=== PATIENT | male | born 1955 ===

== ENCOUNTER 2017-01-13 16:14 | Emergency (ER) | payer OTHER ==
[2017-01-13 16:14] VITALS: BMI 37.0
[2017-01-13 16:30] VITALS: RESP 18
--- NOTE | 2017-01-13 17:39 | RAD ---
PROCEDURE: CHEST RADIOGRAPH, 1 VIEW HISTORY: Shortness of breath COMPARISON: None available. FINDINGS: LUNGS: The lungs are clear. PLEURA: No pneumothorax or pleural fluid seen. CARDIOVASCULAR: Normal. OSSEOUS STRUCTURES: No significant abnormalities. VISUALIZED UPPER ABDOMEN: Normal. OTHER FINDINGS: None. IMPRESSION: No active pulmonary disease.
[2017-01-13 17:45] LABS: BASO # 0.1 K/uL (0.0-0.2); BASO % 1.2 % (0.0-2.0); EOS # 0.4 K/uL (0.0-0.7); HEMATOCRIT 39.6 % (35.0-51.0); LYMPH # 1.8 K/uL (1.0-4.3); LYMPH % 27.7 % (20.0-40.0); MEAN CELL VOLUME 79.7 fL (80.0-94.0); MEAN CORPUSCULAR HEMOGLOBIN 26.9 pg (27.0-31.0); MEAN CORPUSCULAR HGB CONC 33.8 g/dL (33.0-37.0); MEAN PLATELET VOLUME 8.8 fL (7.2-11.7); MONO # 0.6 K/uL (0.0-0.8); MONO % 9.4 % (0.0-10.0); NRBC % 0.1 % (0.0-2.0); RED CELL DISTRIBUTION WIDTH 16.3 % (11.5-14.5); WHITE BLOOD COUNT 6.4 K/uL (4.8-10.8)
[2017-01-13 18:18] LABS: ALB/GLOB RATIO 1.1 (1.0-2.1); ALKALINE PHOSPHATASE 87 U/L (38-126); ALT/SGPT 29 U/L (21-72); AST/SGOT 18 U/L (17-59); BILIRUBIN,TOTAL 0.5 mg/dL (0.2-1.3); BLOOD UREA NITROGEN 21 mg/dL (9-20); CALCIUM 9.6 mg/dl (8.6-10.4); CARBON DIOXIDE 28 mmol/L (22-30); CHLORIDE 102 mmol/L (98-107); GFR AFRICAN-AMERICAN 57; GLUCOSE,RANDOM 129 mg/dL (75-110); POTASSIUM 3.6 mmol/L (3.6-5.2); SODIUM 142 mmol/L (132-148); TOTAL PROTEIN 7.6 g/dL (6.3-8.3)
--- NOTE | 2017-01-13 18:53 | C.PDOC ---
History Of Present Illness 61 year old male presents to the ED with complaints of headache and "uncontrolled HTN." Patient notes he has not been taken either of his medications because they ran out six days ago. He also notes he has been using 3 tubes of 30g steroid creams in three months that he rubs all over his body that originally for a "jock itch." Patient denies fever, chills, nausea, vomiting, chest pain, or shortness of breath. Time Seen by Provider: 01/13/17 16:48 Chief Complaint (Nursing): High Blood Pressure History Per: Patient History/Exam Limitations: no limitations Onset/Duration Of Symptoms: Hrs Current Symptoms Are (Timing): Still Present Associated Symptoms: Headache Recent travel outside of the [place]: No Past Medical History Reviewed: Historical Data, Nursing Documentation, Vital Signs Vital Signs: Last Vital Signs Temp 98.7 F 01/13/17 19:29 Pulse 88 01/13/17 19:15 Resp 18 01/13/17 19:15 BP 171/105 H 01/13/17 19:15 Pulse Ox 98 01/13/17 19:15 - Medical History PMH: Gastrointestinal Ulcer, HTN, Hypercholesterolemia Family History: States: Unknown Family Hx - Social History Hx Alcohol Use: No Hx Substance Use: No - Immunization History Hx Tetanus Toxoid Vaccination: No Hx Influenza Vaccination: No Hx Pneumococcal Vaccination: No Review Of Systems Constitutional: Positive for: Other (uncontrolled HTN ). Negative for: Fever, Chills Cardiovascular: Negative for: Chest Pain, Palpitations Respiratory: Negative for: Cough, Shortness of Breath Gastrointestinal: Negative for: Nausea, Vomiting, Abdominal Pain, Diarrhea Neurological: Positive for: Headache Physical Exam - Physical Exam Appears: Non-toxic, No Acute Distress Skin: Warm, Dry Head: Atraumatic, Other (Epps Face ) Eye(s): bilateral: Normal Inspection, PERRL, EOMI Oral Mucosa: Moist Neck: Other ([place]ump ) Chest: Other (Subclavicular fat pads ) Cardiovascular: Rhythm Regular Respiratory: Normal Breath Sounds, No Rales, No Rhonchi, No Wheezing Gastrointestinal/Abdominal: Soft, No Tenderness, No Distention, No Guarding, No Rebound, Other (Central obesity, no abdominal striae) Extremity: Normal ROM, No Tenderness, No Pedal Edema, No Calf Tenderness, Capillary Refill (good capillary refill, less than two seconds ), No Deformity, No Swelling Neurological/Psych: Oriented x3, Normal Speech, Normal Cognition, Normal Motor, Normal Sensation ED Course And Treatment - Laboratory Results Result Diagrams: 01/13/17 17:41 01/13/17 17:41 Lab Interpretation: Normal (trop neg.) O2 Sat by Pulse Oximetry: 97 (room air ) - Radiology CXR: Interpreted by Tn CXR Interpretation: Yes: No Acute Disease Progress Note: amlodipine 10 PO, Lisinopril 40 PO Reevaluation Time: 19:05 Reassessment Condition: Improved Medical Decision Making Medical Decision Making: HTN: POORLY controlled OFF Lisinopril 40 PO and Amlodipine 10 daily x 6 days. Restarted and educated to NOT run out of BP meds [place] Syndrome Probably iatrogenic- pt has consumed 3 large tubes of topical steroid creams over the past 3 months, rubbing over much of his body. Educated to use no more topical steroid creams. FUNGAL creams for tinea cruris without steroids prescribed. Disposition Doctor Will See Patient In The: Office Counseled Patient/Family Regarding: Studies Performed, Diagnosis - Disposition Referrals: [facility] [Outside] [facility] [Outside] [facility]] Disposition: HOME/ ROUTINE Disposition Time: 19:09 Condition: GOOD Additional Instructions: Hipertension: natividad Lisinopril 40 mg diario (en la manana) natividad Amlodipina 10 mg diario (en la manana) Si estan acabando los medicamentos, presenta en la Clinica o' la [facility] para rellenar payton recetas NUNCA debes acabar payton medicamentos! Sigue en la Clinica en 2 semanas para re-evaluar lam pression tanner Latha Syndrome: Provocado por inguentos de steroides Ya NUNCA usa inguentos que contienen esteroides Picason Inguinal: Applica el inguento de Clotrimazole en el area inguinal 2 veces al samreen por 5 albright. NO usas inguentos con esteroides! Prescriptions: amLODIPine [Norvasc] 10 mg PO DAILY #30 tab Clotrimazole 1% Cream [Lotrimin 1%] 30 applic TOP BID #1 tube Enalapril Maleate [Vasotec] 40 mg PO DAILY #30 tab Instructions: Latha Syndrome (ED), Hypertension (ED), Skin Yeast Infection ( ED) Forms: [facility] (Thai) Print Language: YORUBA - Clinical Impression Clinical Impression: Tinea cruris, HTN (hypertension) - Scribe Statement The provider has reviewed the documentation as recorded by the Scribe Suly Wallace All medical record entries made by the Jenniferibmariella were at my direction and personally dictated by me. I have reviewed the chart and agree that the record accurately reflects my personal performance of the history, physical exam, medical decision making, and the department course for this patient. I have also personally directed, reviewed, and agree with the discharge instructions and disposition.
[2017-01-13 19:23] VITALS: BP 171/105; PULSE 88
[2017-01-13 19:30] VITALS: TEMP 98.7
[2017-01-13 21:45] VITALS: O2SAT 97
--- NOTE | 2017-01-15 18:12 | CARD ---
APPROVED REPORT EKG Measurement Heart [id number] OR [id number] [id number] <Conclusion> Normal sinus rhythm Incomplete right bundle branch block Left anterior fascicular block Prolonged QT Abnormal ECG
== END 2017-01-13 19:43 | disposition home or self-care (01) ==
LOC: C.ER 16:14
DX: I10 Essential (primary) hypertension (principal); B35.6 Tinea cruris; E78.00 Pure hypercholesterolemia, unspecified

== ENCOUNTER 2018-02-12 10:29 | Observation (INO) | payer MEDICAID, OTHER ==
[2018-02-12 10:29] VITALS: BMI 36.1
[2018-02-12] MEDS ORDERED: Enalaprilat 2.5 MG/2 ML IV STA (12:43)
--- NOTE | 2018-02-12 12:51 | C.PDOC ---
History Of Present Illness 62 year old male is sent from the clinic for evaluation of headache and elevated blood pressure. Patient states he usually takes Lisinopril 40mg but was unable to because he was in the [place] and ran out of medication. Patient has not taken medication in the last two weeks. Patient was evaluated in the clinic by Dr. Dowd, who sent prescriptions to the pharmacy but referred patient to the ED for stabilization of his blood pressure. Patient denies fever, chills, vision change, nausea, vomiting, or weakness. Time Seen by Provider: 02/12/18 11:03 Chief Complaint (Nursing): High Blood Pressure History Per: Patient History/Exam Limitations: no limitations Onset/Duration Of Symptoms: Days Current Symptoms Are (Timing): Still Present Associated Symptoms: Headache. denies: Dizziness, Blurred Vision, Focal Weakness Exacerbating Factor(s): Pos: Recently Missed Doses Of Medication Additional History Per: Patient Past Medical History Reviewed: Historical Data, Nursing Documentation, Vital Signs Vital Signs: Last Vital Signs Temp 97.8 F 02/12/18 10:33 Pulse 60 02/12/18 11:16 Resp 17 02/12/18 10:58 BP 193/105 H 02/12/18 11:16 Pulse Ox 98 02/12/18 10:58 - Medical History PMH: Gastrointestinal Ulcer, HTN, Hypercholesterolemia Surgical History: No Surg Hx Family History: States: Unknown Family Hx - Social History Hx Alcohol Use: No Hx Substance Use: No - Immunization History Hx Tetanus Toxoid Vaccination: No Hx Influenza Vaccination: No Hx Pneumococcal Vaccination: No Review Of Systems Constitutional: Negative for: Fever, Chills Eyes: Negative for: Vision Change Cardiovascular: Positive for: Other (elevated blood pressure ) Gastrointestinal: Negative for: Nausea, Vomiting Neurological: Positive for: Headache. Negative for: Weakness, Dizziness Physical Exam - Physical Exam Appears: Non-toxic, No Acute Distress Skin: Normal Color, Warm, Dry Head: Atraumatic, Normacephalic Eye(s): bilateral: Normal Inspection Oral Mucosa: Moist Neck: Supple Chest: Symmetrical, No Deformity, No Tenderness Cardiovascular: Rhythm Regular, No Murmur Respiratory: Normal Breath Sounds, No Rales, No Rhonchi, No Wheezing Extremity: Normal ROM, Capillary Refill (less than 2 seconds ) Neurological/Psych: Oriented x3, Normal Speech, Normal Cognition ED Course And Treatment - Laboratory Results Result Diagrams: 02/12/18 12:59 02/12/18 12:59 O2 Sat by Pulse Oximetry: 98 (on RA) Pulse Ox Interpretation: Normal - Other Rad CXR X-Ray: Interpreted by Me, Viewed By Me, Read By Radiologist Interpretation: Date of service: 02/12/2018. PROCEDURE: CHEST RADIOGRAPH, 1 VIEW. HISTORY: SOB. COMPARISON: Frontal chest radiograph 01/13/2017. FINDINGS: LUNGS: No interval pulmonary disease appreciated bilaterally. PLEURA: No pneumothorax or pleural fluid seen. CARDIOVASCULAR: Cardiomegaly reiterated. Taking technical differences into account, there is no significant evidence to suggest pulmonary vascular congestion. OSSEOUS STRUCTURES: No significant abnormalities. VISUALIZED UPPER ABDOMEN: Normal. OTHER FINDINGS: None. IMPRESSION: Cardiomegaly reiterated. No definite pulmonary vascular congestion, pleural effusion or pneumothorax evident. No alveolitis bilat erally. - CT Scan/US CT Head Other Rad Studies (CT/US): Interpreted By Me, Read By Radiologist, Radiology Report Reviewed CT/US Interpretation: Date of service: 02/12/2018. PROCEDURE: CT HEAD WITHOUT CONTRAST. HISTORY: MARSHALL and elevated BP. COMPARISON: None available. TECHNIQUE: Axial computed tomography images were obtained through the head/brain without intravenous contrast. Radiation dose: Total exam DLP = 1078.05 mGy-cm. This CT exam was performed using one or more of the following dose reduction techniques: Automated exposure control, adjustment of the mA and/or kV according to patient size, and/or use of iterative reconstruction technique. FINDINGS: HEMORRHAGE: No intracranial hemorrhage. BRAIN: There are mild chronic microangiopathic changes. There is no mass, mass effect or abnormal extra-axial fluid collection. There is no territorial infarction. The midline sagittal structures are normal. There is a 10 x 9 mm well-circumscribed round hyperdense lesion in the left suprasellar cistern. VENTRICLES: The ventricles are normal in size, shape and configuration. CALVARIUM: The skull base and calvarium are normal. PARANASAL SINUSES: There is mild mucosal thickening in the ethmoid air cells and small retention cyst/polyp in the left sphenoid chamber. MASTOID AIR CELLS: Predominantly clear. OTHER FINDINGS: None. IMPRESSION: No acute intracranial abnormality. 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 Correlation with CT Angiography of the head is recommended for definitive evaluation. Progress Note: Bloodwork, urinalysis, CT Head, EKG, CXR ordered and reviewed. Vasotec IV given. 16:51 Dr. Gary, neurosurgery on-call, paged for consult. 17:04. Received call back from Dr. Gary, who advised that findings are. incidental, there is no emergent action required, and patient can follow up. in the office. 17:10 Spoke with Hospitalist who accepted patient to Tele for observation. 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 - Scribe Statement The provider has reviewed the documentation as recorded by the Scribe (Irina Kwok) All medical record entries made by the Scribe were at my direction and personally dictated by me. I have reviewed the chart and agree that the record accurately reflects my personal performance of the history, physical exam, medical decision making, and the department course for this patient. I have also personally directed, reviewed, and agree with the discharge instructions and disposition. Decision To Admit - Pt Status Changed To: Hospital Disposition Of: Observation - . Bed Request Type: Telemetry Admitting Physician: Renaldo Sifuentes Patient Diagnosis: Hypertensive urgency, Brain aneurysm, Headache
[2018-02-12] MEDS ORDERED: Enalaprilat 2.5 MG/2 ML ONE (13:02)
[2018-02-12 13:09] LABS: BASO # 0.1 K/uL (0.0-0.2); BASO % 1.1 % (0.0-2.0); EOS # 0.3 K/uL (0.0-0.7); EOS % 6.3 % (0.0-4.0); HEMOGLOBIN 13.4 g/dL (12.0-18.0); LYMPH # 1.6 K/uL (1.0-4.3); LYMPH % 32.5 % (20.0-40.0); MEAN CELL VOLUME 81.6 fL (80.0-94.0); MEAN CORPUSCULAR HEMOGLOBIN 27.2 pg (27.0-31.0); MEAN CORPUSCULAR HGB CONC 33.3 g/dL (33.0-37.0); MEAN PLATELET VOLUME 8.9 fL (7.2-11.7); MONO # 0.5 K/uL (0.0-0.8); MONO % 9.4 % (0.0-10.0); NEUT # 2.5 K/uL (1.8-7.0); NEUT % 50.7 % (50.0-75.0); NRBC % 0.1 % (0.0-2.0); RBC 4.93 Mil/uL (4.40-5.90); RED CELL DISTRIBUTION WIDTH 16.9 % (11.5-14.5); WHITE BLOOD COUNT 4.9 K/uL (4.8-10.8)
[2018-02-12 13:14] LABS: URINE BACTERIA RARE (<OCC); URINE BILIRUBIN NEGATIVE (NEGATIVE); URINE BLOOD NEGATIVE (NEGATIVE); URINE CLARITY Clear (Clear); URINE COLOR Straw (YELLOW); URINE GLUCOSE (UA) NORMAL (Normal); URINE LEUKOCYTE ESTERASE NEG Leu/uL (Negative); URINE PROTEIN 2+ mg/dL (NEGATIVE); URINE UROBILINOGEN NORMAL mg/dL (0.2-1.0)
--- NOTE | 2018-02-12 13:17 | RAD ---
Date of service: 02/12/2018 PROCEDURE: CHEST RADIOGRAPH, 1 VIEW HISTORY: SOB COMPARISON: Frontal chest radiograph 01/13/2017. FINDINGS: LUNGS: No interval pulmonary disease appreciated bilaterally. PLEURA: No pneumothorax or pleural fluid seen. CARDIOVASCULAR: Cardiomegaly reiterated. Taking technical differences into account, there is no significant evidence to suggest pulmonary vascular congestion. OSSEOUS STRUCTURES: No significant abnormalities. VISUALIZED UPPER ABDOMEN: Normal. OTHER FINDINGS: None. IMPRESSION: Cardiomegaly reiterated. No definite pulmonary vascular congestion, pleural effusion or pneumothorax evident. No alveolitis bilaterally.
[2018-02-12 13:23] LABS: ALB/GLOB RATIO 1.1 (1.0-2.1); ALBUMIN 4.3 g/dL (3.5-5.0); ALT/SGPT 27 U/L (21-72); AST/SGOT 21 U/L (17-59); BLOOD UREA NITROGEN 20 mg/dL (9-20); CALCIUM 9.4 mg/dl (8.6-10.4); GFR NON-AFRICAN AMERICAN 51
--- NOTE | 2018-02-12 13:28 | CT ---
Date of service: 02/12/2018 PROCEDURE: CT HEAD WITHOUT CONTRAST. HISTORY: MARSHALL and elevated BP COMPARISON: None available. TECHNIQUE: Axial computed tomography images were obtained through the head/brain without intravenous contrast. Radiation dose: Total exam DLP = 1078.05 mGy-cm. This CT exam was performed using one or more of the following dose reduction techniques: Automated exposure control, adjustment of the mA and/or kV according to patient size, and/or use of iterative reconstruction technique. FINDINGS: HEMORRHAGE: No intracranial hemorrhage. BRAIN: There are mild chronic microangiopathic changes. There is no mass, mass effect or abnormal extra-axial fluid collection. There is no territorial infarction. The midline sagittal structures are normal. There is a 10 x 9 mm well-circumscribed round hyperdense lesion in the left suprasellar cistern. VENTRICLES: The ventricles are normal in size, shape and configuration. CALVARIUM: The skull base and calvarium are normal. PARANASAL SINUSES: There is mild mucosal thickening in the ethmoid air cells and small retention cyst/polyp in the left sphenoid chamber. MASTOID AIR CELLS: Predominantly clear. OTHER FINDINGS: None. IMPRESSION: No acute intracranial abnormality. 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 Correlation with CT Angiography of the head is recommended for definitive evaluation.
[2018-02-12] MEDS ORDERED: Iodixanol 320 MG/ML 100 ML BOTTLE IV ONE (15:03)
[2018-02-12 15:47] LABS: INR 1.1; PROTHROMBIN TIME 11.5 SECONDS (9.7-12.2)
--- NOTE | 2018-02-12 16:23 | CT ---
PROCEDURE: CTA HEAD AND NECK WITH CONTRAST HISTORY: r/o aneurysm COMPARISON: None available. TECHNIQUE: Initial noncontrast head CT was performed. Subsequently, CT angiogram of the head and neck were performed after the intravenous administration of 80 mL of Omnipaque 350. Contiguous 1.5mm thick images were obtained in the axial plane of the neck. 2-D coronal and sagittal MPR images were obtained. Imaging postprocessing was performed with 3-D images also obtained. A delayed contrast head CT was also obtained. This CT exam was performed using one or more of the following dose reduction techniques: Automated exposure control, adjustment of the mA and/or kV according to patient size, and/or use of iterative reconstruction technique. Contrast dose: 100 mL Visipaque 320 Radiation dose: Total exam DLP = 698.81 mGy-cm. FINDINGS: HEAD: Right: The intracranial internal carotid artery, and anterior and middle cerebral arteries are widely patent. The A1 segment is hypoplastic, an anatomic variant. Left: The intracranial internal carotid artery, and anterior and middle cerebral arteries are widely patent. There is a 0.8 x 1.1 cm fusiform aneurysm in the proximal supraclinoid ICA. Posterior circulation: The visualized intracranial vertebral arteries, basilar artery and posterior cerebral arteries are widely patent. There is no endoluminal filling defect to suggest thrombus. There is no intracranial saccular aneurysm. NECK: There is a three vessel aortic arch. There is no stenosis at the origins of the great vessels at the level of the aortic arch. Right Carotid: On the right, the common carotid, internal carotid and external carotid arteries are widely patent. There is no hemodynamically significant stenosis in the internal carotid artery by NASCET criteria. Left Carotid: On the left, the common carotid, internal carotid and external carotid arteries are widely patent.There is no hemodynamically significant stenosis in the internal carotid arteries. There is no hemodynamically significant stenosis in the internal carotid artery by NASCET criteria. The vertebral arteries are widely patent. The right vertebral artery is hypoplastic, an anatomic variant. The visualized soft tissues of the neck are normal. The visualized brain and cervical spine are within normal limits. The lung apices are clear. IMPRESSION: 1. 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 2. No evidence of endoluminal thrombus,occlusion or definite significant stenosis in the intracranial arteries. 3. No evidence of hemodynamically significant stenosis in the internal carotid arteries. 4. Patent bilateral vertebral arteries.
--- NOTE | 2018-02-12 18:49 | CP.PCM.HP ---
History of Present Illness - History of Present Illness History of Present Illness: Medicine History and Physical for Hospitalist Service Dhruv Woo DO PGY-1, [employer] 62M PMhx HTN presents to ED sent in from clinic for elevated bps and headache x 4 days. Pt reports not taking his home medication for 2 weeks due to being in the [place] and running out of the medication at home, [place] the [place]. Noted the headache got especially worse today, took 2 Tylenol without relief. 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 Denies fever, chills, chest pain, sob, n/v/d/c, abd pain, urinary complaints, or other symptoms. PMhx: HTN, HLD; per chart review also has hx of DM2, gastritis, H. pylori infection, Gout PSurgHx: notes hx of L arm surgery near elbow s/p trauma years ago Allergies: NKDA Home meds: states he is only on Lisinopril 40 mg daily, but ran out of medication 2 wks ago Fam hx: denies Soc Hx: denies smoking, alcohol, or illicit drug use PMD: [facility] (Dr. Dowd) Present on Admission - Present on Admission Any Indicators Present on Admission: No Past Patient History - Infectious Disease Hx of Infectious Diseases: None - Past Social History Smoking Status: Unknown If Ever Smoked - CARDIAC Hx Hypercholesterolemia: Yes Hx Hypertension: Yes - GASTROINTESTINAL Hx Ulcer: Yes - PSYCHIATRIC Hx Substance Use: No - SURGICAL HISTORY Hx Surgeries: Yes Other/Comment: Endoscopy for stomach. - ANESTHESIA Hx Anesthesia: Yes Hx Anesthesia Reactions: No Meds Allergies/Adverse Reactions: Allergies Allergy/AdvReac Type Severity Reaction Status Date / Time No Known Allergies Allergy Verified 02/12/18 10:39 Physical Exam - Constitutional Appears: Non-toxic, No Acute Distress - Head Exam Head Exam: ATRAUMATIC, NORMOCEPHALIC - Eye Exam Eye Exam: EOMI, Normal appearance, PERRL - ENT Exam ENT Exam: Mucous Membranes Moist, Normal Oropharynx - Respiratory Exam Respiratory Exam: Clear to Auscultation Bilateral, NORMAL BREATHING PATTERN - Cardiovascular Exam Cardiovascular Exam: REGULAR RHYTHM, +S1, +S2. absent: Gallop, Rubs, Systolic Murmur - GI/Abdominal Exam GI & Abdominal Exam: Normal Bowel Sounds, Soft. absent: Distended, Firm, Guarding, Rebound, Rigid, Tenderness - Extremities Exam Extremities exam: Positive for: full ROM, normal capillary refill, normal inspection, pedal pulses present - Neurological Exam Neurological exam: Alert, CN II-XII Intact, Oriented x3, Reflexes Normal - Psychiatric Exam Psychiatric exam: Normal Affect, Normal Mood - Skin Skin Exam: Dry, Intact, Normal Color, Warm Results - Vital Signs Recent Vital Signs: Last Vital Signs Temp 97.5 F L 02/12/18 16:10 Pulse 78 02/12/18 18:09 Resp 19 02/12/18 18:09 BP 137/88 02/12/18 18:09 Pulse Ox 95 02/12/18 18:09 - Labs Result Diagrams: 02/12/18 12:59 02/12/18 12:59 Labs: Laboratory Results - last 24 hr 02/12/18 02/12/18 02/12/18 12:59 12:59 13:06 WBC 4.9 RBC 4.93 Hgb 13.4 Hct 40.2 MCV 81.6 MCH 27.2 MCHC 33.3 RDW 16.9 H Plt Count 240 MPV 8.9 Neut % (Auto) 50.7 Lymph % (Auto) 32.5 [place] % (Auto) 9.4 Eos % (Auto) 6.3 H Baso % (Auto) 1.1 Neut # (Auto) 2.5 Lymph # (Auto) 1.6 [place] # (Auto) 0.5 Eos # (Auto) 0.3 Baso # (Auto) 0.1 PT INR APTT Sodium 145 Potassium 4.1 Chloride 104 Carbon Dioxide 29 Anion Gap 16 BUN 20 Creatinine 1.4 Est GFR ( Amer) > 60 Est GFR (Non-Af Amer) 51 Random Glucose 98 Calcium 9.4 Total Bilirubin 0.7 AST 21 ALT 27 Alkaline Phosphatase 101 Total Creatine Kinase 70 CK-MB (Mass) 0.70 Total Protein 8.2 Albumin 4.3 Globulin 3.9 Albumin/Globulin Ratio 1.1 Urine Color Straw Urine Clarity Clear Urine pH 7.0 Ur Specific [place] 1.011 Urine Protein 2+ H Urine Glucose (UA) Normal Urine Ketones Negative Urine Blood Negative Urine Nitrate Negative Urine Bilirubin Negative Urine Urobilinogen Normal Ur Leukocyte Esterase Neg Urine WBC (Auto) 1 Urine RBC (Auto) 1 Urine Bacteria Rare 02/12/18 15:28 WBC RBC Hgb Hct MCV MCH MCHC RDW Plt Count MPV Neut % (Auto) Lymph % (Auto) [place] % (Auto) Eos % (Auto) Baso % (Auto) Neut # (Auto) Lymph # (Auto) [place] # (Auto) Eos # (Auto) Baso # (Auto) PT 11.5 INR 1.1 APTT 38 H Sodium Potassium Chloride Carbon Dioxide Anion Gap BUN Creatinine Est GFR ( Amer) Est GFR (Non-Af Amer) Random Glucose Calcium Total Bilirubin AST ALT Alkaline Phosphatase Total Creatine Kinase CK-MB (Mass) Total Protein Albumin Globulin Albumin/Globulin Ratio Urine Color Urine Clarity Urine pH Ur Specific [place] Urine Protein Urine Glucose (UA) Urine Ketones Urine Blood Urine Nitrate Urine Bilirubin Urine Urobilinogen Ur Leukocyte Esterase Urine WBC (Auto) Urine RBC (Auto) Urine Bacteria Assessment & Plan - Assessment and Plan (Free Text) Assessment: 62M PMhx HTN presents to ED sent in from clinic for elevated bps and headache x 4 days. Pt admitted for hypertensive urgency. Plan: HTN Urgency Admit to tele floor Start Lisinopril 40 mg daily Start Norvasc 2.5 mg daily Hydralazine 25 mg PO q6h prn, 10 mg IVP q6h prn elevated bps Goal to keep systolic bp above 170, diastolic bp > 90 Ultram 50 mg q6h prn for headache HHD Will f/u am labs Continue to monitor bps, monitor clinical and mental status CXR: cardiomegaly, no pulm venous congestion, pleural effusion or pneumothorax, no alveolitis b/l EKG: HR 59, incomplete RBBB, unchanged RBBB from prior study in [address]: 10x9 mm round lesion in L suprasellar cistern may represent ICA terminus aneurysm. Correlate w/ CT angio. Head/Neck CTA: 0.8 x1.1 cm fusiform aneurysm in L proximal supraclinoid ICA, no evidence of endoluminal thrombus or definitive significant stenosis in intracranial arteries b/l, no stenosis in b/l carotid arteries, patent b/l vertebral arteries GI ppx: not indicated at this time DVT ppx: SCDs Pt seen, examined with, and plan d/w Dr. Sifuentes, attending. Dhruv Woo DO PGY-1, [employer] Pager #[phone]
[2018-02-12 20:56] VITALS: RESP 20
[2018-02-13 07:11] LABS: BASO # 0.1 K/uL (0.0-0.2); BASO % 1.1 % (0.0-2.0); EOS # 0.1 K/uL (0.0-0.7); EOS % 1.4 % (0.0-4.0); HEMOGLOBIN 12.9 g/dL (12.0-18.0); LYMPH # 1.4 K/uL (1.0-4.3); LYMPH % 22.3 % (20.0-40.0); MEAN CELL VOLUME 80.4 fL (80.0-94.0); MEAN CORPUSCULAR HEMOGLOBIN 26.5 pg (27.0-31.0); MEAN PLATELET VOLUME 9.2 fL (7.2-11.7); MONO # 0.4 K/uL (0.0-0.8); MONO % 6.3 % (0.0-10.0); NEUT # 4.3 K/uL (1.8-7.0); NEUT % 68.9 % (50.0-75.0); NRBC % 0.1 % (0.0-2.0); RBC 4.88 Mil/uL (4.40-5.90); RED CELL DISTRIBUTION WIDTH 16.9 % (11.5-14.5); WHITE BLOOD COUNT 6.3 K/uL (4.8-10.8)
[2018-02-13 08:08] LABS: ALB/GLOB RATIO 1.1 (1.0-2.1); ALBUMIN 3.9 g/dL (3.5-5.0); CALCIUM 9.3 mg/dl (8.6-10.4)
[2018-02-13] MEDS ORDERED: Labetalol 25mg/5ml Syringe IVP PRN (19:00)
--- NOTE | 2018-02-13 19:09 | CP.PCM.PN ---
Subjective - Date & Time of Evaluation Date of Evaluation: 02/13/18 Time of Evaluation: 11:09 - Subjective Subjective: PGY2 Medicine Note for Dr. Aranda Patient seen and examined this morning at bedside this morning. Patient was admitted yesterday for HTN urgency. His BP has been elevated throughout the day/night. He is still complaining of a headache. He denies any vision changes, nausea or vomiting. Patient is tolerating his diet. Denies any other complaints at this time. Objective - Vital Signs/Intake and Output Vital Signs (last 24 hours): Temp Pulse Resp BP Pulse Ox 98.1 F 75 20 185/108 H 97 02/13/18 16:28 02/13/18 16:28 02/13/18 16:28 02/13/18 17:45 02/13/18 16:28 - Medications Medications: Current Medications Amlodipine Besylate (Norvasc) 5 mg PO DAILY [facility] Heparin Sodium (Porcine) (Heparin) 5,000 units SC Q12 [facility] Last Admin: 02/13/18 10:42 Dose: 5,000 units Hydralazine HCl (Apresoline) 25 mg PO QID PRN PRN Reason: Diastolic blood pressure Last Admin: 02/13/18 14:51 Dose: 25 mg Labetalol HCl (Trandate) 10 mg IVP Q6H PRN PRN Reason: SBP>170 or DBP>100 Lisinopril (Zestril) 40 mg PO DAILY [facility] Last Admin: 02/13/18 10:00 Dose: Not Given Lisinopril (Zestril) 40 mg PO ONCE ONE Stop: 02/13/18 19:23 Last Admin: 02/13/18 18:26 Dose: 40 mg Tramadol HCl (Ultram) 50 mg PO Q6H PRN PRN Reason: Headache Last Admin: 02/13/18 14:27 Dose: 50 mg - Labs Labs: 02/13/18 07:03 02/13/18 07:03 PT 11.5 SECONDS (9.7-12.2) 02/12/18 15:28 INR 1.1 02/12/18 15:28 APTT 38 SECONDS (21-34) H 02/12/18 15:28 - Constitutional Appears: Non-toxic, No Acute Distress - Head Exam Head Exam: ATRAUMATIC, NORMOCEPHALIC - Eye Exam Eye Exam: EOMI, Normal appearance Pupil Exam: NORMAL ACCOMODATION, PERRL - ENT Exam ENT Exam: Mucous Membranes Moist - Neck Exam Neck Exam: absent: Lymphadenopathy - Respiratory Exam Respiratory Exam: Clear to Ausculation Bilateral, NORMAL BREATHING PATTERN. absent: Accessory Muscle Use, Rales, Rhonchi, Wheezes, Respiratory Distress - Cardiovascular Exam Cardiovascular Exam: REGULAR RHYTHM, +S1 - GI/Abdominal Exam GI & Abdominal Exam: Soft, Normal Bowel Sounds. absent: Distended, Firm, Guardi ng, Rigid - Extremities Exam Extremities Exam: absent: Calf Tenderness, Pedal Edema - Neurological Exam Neurological Exam: Alert, Awake, CN II-XII Intact, Oriented x3 - Psychiatric Exam Psychiatric exam: Normal Affect, Normal Mood - Skin Skin Exam: Dry, Warm Assessment and Plan - Assessment and Plan (Free Text) Plan: HTN Urgency BP still uncontrolled EKG (02/12): HR 59, incomplete RBBB, unchanged RBBB from prior study in 2017 Goal to keep systolic bp above 170, diastolic bp > 90 Lisinopril 40 mg PO daily Norvasc 2.5 mg PO daily --> increased to 5mg PO daily Hydralazine 25 mg PO q6h prn Labetalol 10mg IVP q6h prn for SBP>170 or DBP>100 * hold for HR<70bpm Ultram 50 mg q6h prn for headache Continue to monitor bps, monitor clinical and mental status CXR: cardiomegaly, no pulm venous congestion, pleural effusion or pneumothorax, no alveolitis 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 Correlate w/ CT angio. Head/Neck CTA: * 0.8 x1.1 cm fusiform aneurysm in L proximal supraclinoid ICA, no evidence of endoluminal thrombus or definitive significant stenosis in intracranial arteries b/l, no stenosis in b/l carotid arteries, patent b/l vertebral arteries Prophylactic Care GI ppx: not indicated at this time DVT ppx: SCDs Case discussed with Dr. Manoj Chan Federico PGY2
[2018-02-14 07:28] LABS: EOS # 0.3 K/uL (0.0-0.7); EOS % 5.7 % (0.0-4.0); HEMOGLOBIN 12.3 g/dL (12.0-18.0); LYMPH # 1.6 K/uL (1.0-4.3); LYMPH % 34.6 % (20.0-40.0); MEAN CELL VOLUME 80.9 fL (80.0-94.0); MEAN CORPUSCULAR HEMOGLOBIN 27.3 pg (27.0-31.0); MEAN CORPUSCULAR HGB CONC 33.7 g/dL (33.0-37.0); MEAN PLATELET VOLUME 9.3 fL (7.2-11.7); MONO # 0.4 K/uL (0.0-0.8); MONO % 9.3 % (0.0-10.0); NEUT # 2.3 K/uL (1.8-7.0); NEUT % 49.4 % (50.0-75.0); RBC 4.52 Mil/uL (4.40-5.90); RED CELL DISTRIBUTION WIDTH 16.7 % (11.5-14.5); WHITE BLOOD COUNT 4.6 K/uL (4.8-10.8)
[2018-02-14 07:59] LABS: ALB/GLOB RATIO 1.2 (1.0-2.1); ALBUMIN 3.6 g/dL (3.5-5.0); CALCIUM 8.9 mg/dl (8.6-10.4)
[2018-02-14] MEDS ORDERED: Influenza Vaccine 60 MCG/0.5 ML SYR (3 yr & up) IM ONE (19:08)
[2018-02-14] MEDS ORDERED: Pneumococcal 23-Valent Vaccine IM ONE (19:09)
--- NOTE | 2018-02-14 21:05 | CP.PCM.PN ---
Subjective - Date & Time of Evaluation Date of Evaluation: 02/14/18 Time of Evaluation: 08:30 - Subjective Subjective: PGY-[address] Castorena Patient is seen and examined at bedside. Patient admits to having less headaches. Patient feeling better overall. Patient denies fever, chills, chest pain, shortness of breath, nausea, vomiting, abdominal pain or dysuria. Patient is tolerating diet and having normal bowel movements. Objective - Vital Signs/Intake and Output Vital Signs (last 24 hours): Temp Pulse Resp BP Pulse Ox 97.9 F 73 20 156/78 H 96 02/14/18 15:04 02/14/18 15:04 02/14/18 15:04 02/14/18 18:34 02/14/18 15:04 - Medications Medications: Current Medications Amlodipine Besylate (Norvasc) 10 mg PO DAILY [facility] Heparin Sodium (Porcine) (Heparin) 5,000 units SC Q12 [facility] Last Admin: 02/14/18 10:14 Dose: 5,000 units Hydralazine HCl (Apresoline) 25 mg PO TID [facility] Last Admin: 02/14/18 17:43 Dose: 25 mg Labetalol HCl (Trandate) 10 mg IVP Q6H PRN PRN Reason: SBP>170 or DBP>100 Tramadol HCl (Ultram) 50 mg PO Q6H PRN PRN Reason: Headache Last Admin: 02/14/18 02:11 Dose: 50 mg - Labs Labs: 02/14/18 07:16 02/14/18 07:16 PT 11.5 SECONDS (9.7-12.2) 02/12/18 15:28 INR 1.1 02/12/18 15:28 APTT 38 SECONDS (21-34) H 02/12/18 15:28 - Constitutional Appears: Well, Non-toxic, No Acute Distress - Head Exam Head Exam: ATRAUMATIC, NORMAL INSPECTION, NORMOCEPHALIC - Eye Exam Eye Exam: EOMI, Normal appearance - ENT Exam ENT Exam: Mucous Membranes Moist, Normal Exam - Neck Exam Neck Exam: Full ROM, Normal Inspection - Respiratory Exam Respiratory Exam: Clear to Ausculation Bilateral, NORMAL BREATHING PATTERN. absent: Rales, Rhonchi, Wheezes - Cardiovascular Exam Cardiovascular Exam: REGULAR RHYTHM, +S1, +S2 - GI/Abdominal Exam GI & Abdominal Exam: Soft, Normal Bowel Sounds. absent: Distended, Tenderness - Extremities Exam Extremities Exam: Full ROM, Normal Inspection. absent: Calf Tenderness, Tenderness - Back Exam Back Exam: Full ROM, NORMAL INSPECTION - Neurological Exam Neurological Exam: Alert, Awake, Oriented x3 - Psychiatric Exam Psychiatric exam: Normal Affect, Normal Mood - Skin Skin Exam: Dry, Intact, Normal Color, Warm Assessment and Plan - Assessment and Plan (Free Text) Plan: HTN Urgency BP - fluctuating. continues to remain elevated. 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 Patient can follow up outpatient with primary doctor. 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 Correlate w/ CT angio. Head/Neck CTA: * 0.8 x1.1 cm fusiform aneurysm in L proximal supraclinoid ICA, no evidence of endoluminal thrombus or definitive significant stenosis in intracranial arteries b/l, no stenosis in b/l carotid arteries, patent b/l vertebral arteries Prophylactic Care GI ppx: not indicated at this time DVT ppx: SCDs Dispo: If patient SBP is in the 150s, patient can be discharged home tomorrow. Patient needs to make initial appointment with one of our [facility]. Patient was recommended to reach out to the [facility] and to make an appointment as soon as patient is discharged home. Patient was explained the importance of being complaint with BP meds. Patient will need to buy a BP monitor. Plan discussed with Dr Raffaele Gallagher, PGY-1
[2018-02-15 07:43] LABS: BASO % 1.1 % (0.0-2.0); EOS # 0.3 K/uL (0.0-0.7); EOS % 7.2 % (0.0-4.0); LYMPH # 1.3 K/uL (1.0-4.3); LYMPH % 31.8 % (20.0-40.0); MEAN CELL VOLUME 80.7 fL (80.0-94.0); MEAN CORPUSCULAR HEMOGLOBIN 26.9 pg (27.0-31.0); MEAN CORPUSCULAR HGB CONC 33.3 g/dL (33.0-37.0); MEAN PLATELET VOLUME 9.1 fL (7.2-11.7); MONO # 0.4 K/uL (0.0-0.8); MONO % 8.8 % (0.0-10.0); NEUT # 2.1 K/uL (1.8-7.0); NEUT % 51.1 % (50.0-75.0); NRBC % 0.1 % (0.0-2.0); RBC 4.47 Mil/uL (4.40-5.90); WHITE BLOOD COUNT 4.1 K/uL (4.8-10.8)
[2018-02-15 07:58] LABS: ALB/GLOB RATIO 1.1 (1.0-2.1); ALBUMIN 3.6 g/dL (3.5-5.0)
[2018-02-15 08:03] VITALS: TEMP 98; O2SAT 96
--- NOTE | 2018-02-15 10:51 | CARD ---
APPROVED REPORT Date of service: 02/12/2018 EKG Measurement Heart [id number] <Conclusion> Sinus bradycardia with premature atrial complexes Left axis deviation Incomplete right bundle branch block Nonspecific T wave abnormality Abnormal ECG
[2018-02-15 13:10] VITALS: PULSE 71
[2018-02-15 14:23] VITALS: BP 165/92
--- NOTE | 2018-02-15 18:02 | CP.PCM.DIS ---
Provider - Provider Date of Admission: 02/12/18 17:12 Attending physician: Renaldo Sifuentes MD Time Spent in preparation of Discharge (in minutes): 35 Diagnosis - Discharge Diagnosis (1) Brain aneurysm Status: Acute (2) HTN (hypertension) Status: Chronic (3) Headache Status: Resolved (4) Hypertensive urgency Status: Resolved Hospital Course - Lab Results Lab Results: Most Recent Lab Values WBC 4.1 K/uL (4.8-10.8) L 02/15/18 07:34 RBC 4.47 Mil/uL (4.40-5.90) 02/15/18 07:34 Hgb 12.0 g/dL (12.0-18.0) 02/15/18 07:34 Hct 36.1 % (35.0-51.0) 02/15/18 07:34 MCV 80.7 fL (80.0-94.0) 02/15/18 07:34 MCH 26.9 pg (27.0-31.0) L 02/15/18 07:34 MCHC 33.3 g/dL (33.0-37.0) 02/15/18 07:34 RDW 17.0 % (11.5-14.5) H 02/15/18 07:34 Plt Count 241 K/uL (130-400) 02/15/18 07:34 MPV 9.1 fL (7.2-11.7) 02/15/18 07:34 Neut % (Auto) 51.1 % (50.0-75.0) 02/15/18 07:34 Lymph % (Auto) 31.8 % (20.0-40.0) 02/15/18 07:34 [place] % (Auto) 8.8 % (0.0-10.0) 02/15/18 07:34 Eos % (Auto) 7.2 % (0.0-4.0) H 02/15/18 07:34 Baso % (Auto) 1.1 % (0.0-2.0) 02/15/18 07:34 Neut # (Auto) 2.1 K/uL (1.8-7.0) 02/15/18 07:34 Lymph # (Auto) 1.3 K/uL (1.0-4.3) 02/15/18 07:34 [place] # (Auto) 0.4 K/uL (0.0-0.8) 02/15/18 07:34 Eos # (Auto) 0.3 K/uL (0.0-0.7) 02/15/18 07:34 Baso # (Auto) 0.0 K/uL (0.0-0.2) 02/15/18 07:34 PT 11.5 SECONDS (9.7-12.2) 02/12/18 15:28 INR 1.1 02/12/18 15:28 APTT 38 SECONDS (21-34) H 02/12/18 15:28 Sodium 142 mmol/L (132-148) 02/15/18 07:34 Potassium 3.9 mmol/L (3.6-5.2) 02/15/18 07:34 Chloride 104 mmol/L (98-107) 02/15/18 07:34 Carbon Dioxide 27 mmol/L (22-30) 02/15/18 07:34 Anion Gap 15 (10-20) 02/15/18 07:34 BUN 30 mg/dL (9-20) H 02/15/18 07:34 Creatinine 1.7 mg/dL (0.8-1.5) H 02/15/18 07:34 Est GFR ( Amer) 50 02/15/18 07:34 Est GFR (Non-Af Amer) 41 02/15/18 07:34 POC Glucose (mg/dL) 110 mg/dL (65-110) 02/14/18 21:19 Random Glucose 106 mg/dL (75-110) 02/15/18 07:34 Calcium 9.0 mg/dl (8.6-10.4) 02/15/18 07:34 Phosphorus 4.0 mg/dL (2.5-4.5) 02/13/18 07:03 Magnesium 2.3 mg/dL (1.6-2.3) 02/13/18 07:03 Total Bilirubin 0.6 mg/dL (0.2-1.3) 02/15/18 07:34 AST 16 U/L (17-59) L 02/15/18 07:34 ALT 16 U/L (21-72) L 02/15/18 07:34 Alkaline Phosphatase 78 U/L (38-126) 02/15/18 07:34 Total Creatine Kinase 70 U/L (55-170) 02/12/18 12:59 CK-MB (Mass) 0.70 ng/mL (0.0-3.38) 02/12/18 12:59 Total Protein 7.1 g/dL (6.3-8.3) 02/15/18 07:34 Albumin 3.6 g/dL (3.5-5.0) 02/15/18 07:34 Globulin 3.4 gm/dL (2.2-3.9) 02/15/18 07:34 Albumin/Globulin Ratio 1.1 (1.0-2.1) 02/15/18 07:34 Urine Color Straw (YELLOW) 02/12/18 13:06 Urine Clarity Clear (Clear) 02/12/18 13:06 Urine pH 7.0 (5.0-8.0) 02/12/18 13:06 Ur Specific [place] 1.011 (1.003-1.030) 02/12/18 13:06 Urine Protein 2+ mg/dL (NEGATIVE) H 02/12/18 13:06 Urine Glucose (UA) Normal mg/dL (Normal) 02/12/18 13:06 Urine Ketones Negative mg/dL (NEGATIVE) 02/12/18 13:06 Urine Blood Negative (NEGATIVE) 02/12/18 13:06 Urine Nitrate Negative (NEGATIVE) 02/12/18 13:06 Urine Bilirubin Negative (NEGATIVE) 02/12/18 13:06 Urine Urobilinogen Normal mg/dL (0.2-1.0) 02/12/18 13:06 Ur Leukocyte Esterase Neg [place]/uL (Negative) 02/12/18 13:06 Urine WBC (Auto) 1 /hpf (0-5) 02/12/18 13:06 Urine RBC (Auto) 1 /hpf (0-3) 02/12/18 13:06 Urine Bacteria Rare (<OCC) 02/12/18 13:06 - Hospital Course Hospital Course: On admission: 62M PMhx HTN presents to ED sent in from clinic for elevated bps and headache x 4 days. Pt reports not taking his home medication for 2 weeks due to being in the [place] and running out of the medication at home, [place] the [place]. Noted the headache got especially worse today, took 2 Tylenol without relief. 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 Denies fever, chills, chest pain, sob, n/v/d/c, abd pain, urinary complaints, or other symptoms. Hospital course: Patient was admitted to telemetry. Started on Lisinopril 40 mg daily, Norvasc 2.5 mg daily, Hydralazine 25 mg PO q6h prn, 10 mg IVP q6h prn elevated BPs. With a goal to keep systolic bp above 170, diastolic bp > 90. Ultram 50 mg q6h prn for headache. CXR showed cardiomegaly, no pulm venous congestion, pleural effusion or pneumothorax, no alveolitis b/l. EKG: HR 59, incomplete RBBB, unchanged RBBB from prior study in 2017. 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 Head/Neck CTA showed : 0.8 x1.1 cm fusiform aneurysm in L proximal supraclinoid ICA, no evidence of endoluminal thrombus or definitive significant stenosis in intracranial arteries b/l, no stenosis in b/l carotid arteries, patent b/l vertebral arteries Pt's BP continued to be elevated during the stay but was ultimately controlled with Amlodipine 10 mg PO daily, Hydralazine 25 mg PO TID. Pt developed increase in creatinine with lisinopril and it was not given on discharge. Pt was instructed to follow up with clinic for monitoring of his aneurysm and blood pressure. Patient was discharged on ASA 81 mg PO as well for cardioprotection. This is a summary of the hospital course, please see chart for full details. Discharge Exam - Head Exam Head Exam: ATRAUMATIC, NORMAL INSPECTION, NORMOCEPHALIC - Eye Exam Eye Exam: EOMI, Normal appearance - ENT Exam ENT Exam: Mucous Membranes Moist - Respiratory Exam Respiratory Exam: NORMAL BREATHING PATTERN. absent: Rales, Rhonchi, Wheezes, Respiratory Distress - Cardiovascular Exam Cardiovascular Exam: REGULAR RHYTHM, +S1, +S2 - GI/Abdominal Exam GI & Abdominal Exam: Normal Bowel Sounds, Soft. absent: Distended, Firm, Guarding, Tenderness - Extremities Exam Extremities exam: normal inspection - Back Exam Back exam: NORMAL INSPECTION - Neurological Exam Neurological exam: Alert, Oriented x3 - Psychiatric Exam Psychiatric exam: Normal Affect, Normal Mood - Skin Skin Exam: Dry, Normal Color, Warm Discharge Plan - Discharge Medications Prescriptions: amLODIPine [Norvasc] 10 mg PO DAILY 30 Days #30 tab hydrALAZINE [Apresoline] 25 mg PO TID 30 Days #90 tab - Follow Up Plan Condition: FAIR Disposition: HOME/ ROUTINE Instructions: Heart Healthy Diet, Brain Aneurysm (DC), Headache, Adult (DC), Amlodipine, Hydralazine, Hypertension (DC) Additional Instructions: Patient is medical stable and safe for discharge home. Patient should start taking: Amlodipine 10 mg by mouth once daily, Hydralazine 25 mg by mouth three times daily, and Aspirin 81 mg by mouth once daily. Aspirin can be found over the counter. Patient should only take these three medications, and stop taking Lisinopril. Patient should follow up with [facility] [place] within 1 week for adjustment of medications as needed. [address] [place] [address] Patient should follow up for close monitoring of his aneurysm noted on head ct. Patient instructed to obtain a blood pressure monitor, and to keep a blood pressure diary to better manage his hypertension. If patient develops headache that is uncontrolled by OTC pain medications, or if BP is above 180/120, he should go to the nearest Emergency Department for evaluation. Instructions explained to the patient, who understands and agrees with discharge plan. El paciente es mdico estable y seguro para el tanner domiciliaria. El paciente debe comenzar a melody: Amlodipine 10 mg por va oral sissy vez al da, Hydralazine 25 mg por la boca [place] veces al da y Aspirina 81 mg por va oral sissy vez al da. La aspirina se puede encontrar en el mostrador. El paciente solo debe melody estos [place] medicamentos y dejar de melody Lisinopril. El paciente debe hacer un seguimiento con [facility] [place] dentro de 1 semana para ajustar los medicamentos segn sea necesario. [address] [place] [address] [place]: [phone] El paciente debe realizar un seguimiento para controlar de cerca el aneurisma que se observa en la barry ct. Paciente instruido para obtener un monitor de presin arterial y llevar un diario de presin arterial para controlar mejor lam hipertensin. Si el paciente tiene dolor de barry que no est controlado por medicamentos para el dolor de venta melly, o si la presin arterial est por encima de 180/120, debe acudir al [facility] ms cercano para lam evaluacin. Instrucciones explicadas al paciente, que entiende y est de acuerdo con el plan de tanner.
== END 2018-02-15 15:35 | disposition home or self-care (01) ==
LOC: C.ER 10:29 → C.9E 17:12 → C.6T 19:02
PROVIDERS: ADMIT Internal Medicine; ATTEND Internal Medicine
DX: I16.0 Hypertensive urgency (principal); I67.1 Cerebral aneurysm, nonruptured; Z79.899 Other long term (current) drug therapy; E11.9 Type 2 diabetes mellitus without complications; E78.5 Hyperlipidemia, unspecified; M10.9 Gout, unspecified; E78.00 Pure hypercholesterolemia, unspecified; I11.9 Hypertensive heart disease without heart failure
CPT/HCPCS: 36415; 70450; 70496; 70498; 71045; 80053; 81001; 82550; 82553; 82948; 83735; 84100; 85025; 85610; 85730; 93005; 96374; 99285; G0378; J0360; J1644; Q9967